=== PATIENT | male | born 1970 | race Caucasian/White ===

== ENCOUNTER 2017-02-22 15:31 | Emergency (ER) | payer OTHER ==
[~2017-02-22] VITALS: Ht 165.1 cm; Wt 90.9 kg
[~2017-02-22 15:31] MED LIST: AMLO-512 PO; B CO1CAP4 PO; DULO20CA30 PO; HYDR-2924 PO; LEVO25TA9 PO; LISI-660 PO; METO25; QUET200T PO; QUET25TA PO
[2017-02-22] MEDS ORDERED: LOSA50TA37 PO (15:38)
[2017-02-22 15:43] LABS: GLUCOSE,POINT OF CARE 155 MG/DL (70-110)
[2017-02-22 16:15] LABS: BASOPHILS # (AUTO) 0.02 K/uL (0.00-0.20); BASOPHILS % (AUTO) 0.3 % (0.0-2.0); EOSINOPHILS # (AUTO) 0.19 K/uL (0.00-0.70); EOSINOPHILS % (AUTO) 3.34 % (1.0-6.0); HEMATOCRIT 31.2 % (41-53); HEMOGLOBIN 10.5 g/dL (13.5-17.5); LYMPHOCYTES # (AUTO) 1.8 K/uL (1.0-4.8); LYMPHOCYTES % (AUTO) 31.5 % (22.0-44.0); MEAN CORPUSCULAR HGB CONC 33.7 G/dL (31.0-37.0); MEAN CORPUSCULAR VOLUME 95 fL (80-100); MONOCYTES # (AUTO) 0.8 K/uL (0.1-1.0); MONOCYTES % (AUTO) 14.5 % (2.0-9.0); NEUTROPHILS # (AUTO) 2.9 K/uL (1.8-7.7); NEUTROPHILS % (AUTO) 50.5 % (40.0-70.0); PLATELET COUNT (AUTO) 214 K/uL (150-450); RED BLOOD CELL COUNT(AUTO) 3.28 MIL/uL (4.50-5.90); RED CELL DISTRIBUTION WIDTH 19.1 % (11.5-14.5)
[2017-02-22 16:41] LABS: CALCIUM, TOTAL 8.8 mg/dL (8.8-10.5); CREATININE 10.77 mg/dL (0.60-1.30); POTASSIUM 5.1 mmol/L (3.5-5.1)
[2017-02-22 16:47] LABS: ALBUMIN 3.5 g/dL (3.4-5.0); BILIRUBIN,TOTAL 0.4 mg/dL (0.1-1.0)
[2017-02-22] MEDS ORDERED: BISMUTH SUBSALICYLATE 524 MG/30 ML SUSPENSION UDCUP PO ONE (18:15)
[2017-02-22] MEDS ORDERED: ONDANSETRON HCL 4 MG/2 ML VIAL IVP ONE (18:15)
[2017-02-22 19:42] VITALS: BP 145/69
== END 2017-02-22 19:51 | disposition home or self-care (01) ==
LOC: EMS 15:32
DX: R10.30 Lower abdominal pain, unspecified (principal); R19.7 Diarrhea, unspecified; E11.9 Type 2 diabetes mellitus without complications; I10 Essential (primary) hypertension; E78.00 Pure hypercholesterolemia, unspecified; F17.210 Nicotine dependence, cigarettes, uncomplicated; Z88.0 Allergy status to penicillin; Z88.8 Allergy status to other drugs, medicaments and biological substances
CPT/HCPCS: 36415; 80053; 82962; 83690; 85025; 96374; 99284; 99406; J2405

== ENCOUNTER 2017-09-27 06:05 | Day surgery (SDC) | payer OTHER ==
[~2017-09-27] VITALS: Ht 162.6 cm; Wt 86.8 kg
[~2017-09-27 06:05] MED LIST changes: -AMLO-512 PO; +ASPI81 PO; +ATOR10TA84 PO; -B CO1CAP4 PO; +CETI-290 PO; +CYCL10 PO; -DULO20CA30 PO; +FOLI0.8T43 PO; -HYDR-2924 PO; -LEVO25TA9 PO; +LEVO88TA4 PO; -LISI-660 PO; +LOSA50TA37 PO; -METO25; +PANT40TA25 PO; +PHOSLOC PO; -QUET200T PO; +SODIUM CHLORIDE 0.9% 1,000 ML IV ONE; +SUCR500T PO; +VITAD1000 PO
[2017-09-27] MEDS ORDERED: SODIUM CHLORIDE 0.9% 1,000 ML IV ONE (06:08)
[2017-09-27] MEDS ORDERED: CETI-290 PO (06:27)
[2017-09-27] MEDS ORDERED: METO50 PO (06:28)
[2017-09-27 07:47] LABS: BASOPHILS % (AUTO) 1.1 % (0.0-2.0); EOSINOPHILS % (AUTO) 2.3 % (1.0-6.0); HEMATOCRIT 36.1 % (41-53); HEMOGLOBIN 12.8 g/dL (13.5-17.5); LYMPHOCYTES # (AUTO) 2.2 K/uL (1.0-4.8); LYMPHOCYTES % (AUTO) 31.1 % (22.0-44.0); MEAN CORPUSCULAR HEMOGLOBIN 29.7 pg (26.0-34.0); MEAN CORPUSCULAR HGB CONC 35.5 G/dL (31.0-37.0); MEAN CORPUSCULAR VOLUME 84 fL (80-100); MONOCYTES % (AUTO) 13.8 % (2.0-9.0); NEUTROPHILS # (AUTO) 3.6 K/uL (1.8-7.7); NEUTROPHILS % (AUTO) 51.7 % (40.0-70.0); PLATELET COUNT (AUTO) 274 K/uL (150-450); RED BLOOD CELL COUNT(AUTO) 4.32 MIL/uL (4.50-5.90); RED CELL DISTRIBUTION WIDTH 18.6 % (11.5-14.5)
[2017-09-27 07:58] LABS: CALCIUM, TOTAL 8.9 mg/dL (8.8-10.5); CREATININE 10.19 mg/dL (0.60-1.30); POTASSIUM 4.1 mmol/L (3.5-5.1)
[2017-09-27 08:00] LABS: PROTHROMBIN TIME 10.7 SEC (9.4-11.6)
[2017-09-27 08:02] LABS: ALBUMIN 3.8 g/dL (3.4-5.0); BILIRUBIN,TOTAL 0.6 mg/dL (0.1-1.0); TOTAL PROTEIN, SERUM 7.6 g/dL (6.4-8.2)
[2017-09-27] MEDS ORDERED: HEPARIN SODIUM 1000 UNITS/NS 1,000 ML ONE (08:19)
[2017-09-27] MEDS ORDERED: IOHEXOL 300 MG/ML 150 ML VIAL ONE (08:19)
[2017-09-27] MEDS ORDERED: SODIUM BICARBONATE 50 MEQ/50 ML VIAL ONE (08:19)
[2017-09-27] MEDS ORDERED: LIDOCAINE HCL/PF 1% 30 ML VIAL ONE (08:19)
[2017-09-27 08:27] VITALS: BP 102/65
[2017-09-27] MEDS ORDERED: HEPARIN SODIUM 1000 UNITS/NS 1,000 ML IARTER ONE (09:42)
[2017-09-27] MEDS ORDERED: LIDOCAINE 1% 30 ML/SOD BICARB 8.4% 4 ML SQ ONE (09:45)
[2017-09-27] MEDS ORDERED: IOHEXOL 300 MG/ML 150 ML VIAL IARTER ONE (09:45)
[2017-09-27 09:58] VITALS: BP 106/70
== END 2017-09-27 14:15 | disposition home or self-care (01) ==
LOC: CATHLAB 06:05
PROVIDERS: ATTEND Internal Medicine Cardiovascular Disease
DX: I25.118 Atherosclerotic heart disease of native coronary artery with other forms of angina pectoris (principal); I12.0 Hypertensive chronic kidney disease with stage 5 chronic kidney disease or end stage renal disease; E11.22 Type 2 diabetes mellitus with diabetic chronic kidney disease; N18.6 End stage renal disease; E03.9 Hypothyroidism, unspecified; E78.5 Hyperlipidemia, unspecified; F10.21 Alcohol dependence, in remission; F12.21 Cannabis dependence, in remission; F41.8 Other specified anxiety disorders; F32.89 Other specified depressive episodes; Z99.2 Dependence on renal dialysis; Z86.74 Personal history of sudden cardiac arrest; Z79.4 Long term (current) use of insulin; Z79.82 Long term (current) use of aspirin; Z88.0 Allergy status to penicillin; Z87.891 Personal history of nicotine dependence; Z90.89 Acquired absence of other organs; Z88.8 Allergy status to other drugs, medicaments and biological substances; Z79.899 Other long term (current) drug therapy; Z98.890 Other specified postprocedural states
CPT/HCPCS: 36415; 80053; 85025; 85610; 85730; 93005; 93458; 99152; 99153; C1760; J1644; J3490 ×2; J7030; Q9967

== ENCOUNTER 2018-04-02 11:45 | Emergency (ER) | payer MEDICAID, OTHER ==
[~2018-04-02] VITALS: Ht 165.1 cm; Wt 88.6 kg
[~2018-04-02 11:45] MED LIST changes: -CYCL10 PO; -LOSA50TA37 PO; +LOSA50TA64 PO; +METO50 PO; -SODIUM CHLORIDE 0.9% 1,000 ML IV ONE
[2018-04-02 11:54] LABS: GLUCOSE,POINT OF CARE 250 MG/DL (70-110)
[2018-04-02] MEDS ORDERED: LORazepam 1 MG TABLET PO ONE (15:30)
[2018-04-02] MEDS ORDERED: HALOPERIDOL 5 MG TABLET PO ONE (15:30)
[2018-04-02] MEDS ORDERED: ACETAMINOPHEN 325 MG TABLET PO ONE (15:30)
[2018-04-02 16:05] VITALS: BP 147/97
== END 2018-04-02 16:40 | disposition home or self-care (01) ==
LOC: EMS 11:46
DX: F20.9 Schizophrenia, unspecified (principal); I10 Essential (primary) hypertension; E78.00 Pure hypercholesterolemia, unspecified; E11.9 Type 2 diabetes mellitus without complications; F17.210 Nicotine dependence, cigarettes, uncomplicated; Z88.0 Allergy status to penicillin; Z88.8 Allergy status to other drugs, medicaments and biological substances; Z79.82 Long term (current) use of aspirin

== ENCOUNTER 2018-05-31 18:45 | Inpatient (IN) | payer MEDICAID, OTHER ==
[~2018-05-31] VITALS: Ht 167.6 cm; Wt 91.3 kg
[~2018-05-31 18:45] MED LIST changes: +CETI-170 PO; -CETI-290 PO
[2018-05-31 20:38] LABS: EOSINOPHILS % (AUTO) 0.9 % (1.0-6.0); HEMATOCRIT 40.6 % (41-53); LYMPHOCYTES # (AUTO) 2.6 K/uL (1.0-4.8); LYMPHOCYTES % (AUTO) 24.1 % (22.0-44.0); MEAN CORPUSCULAR HEMOGLOBIN 29.6 pg (26.0-34.0); MEAN CORPUSCULAR HGB CONC 34.5 G/dL (31.0-37.0); MEAN CORPUSCULAR VOLUME 86 fL (80-100); MONOCYTES # (AUTO) 0.9 K/uL (0.1-1.0); MONOCYTES % (AUTO) 8.7 % (2.0-9.0); NEUTROPHILS % (AUTO) 65.3 % (40.0-70.0); PLATELET COUNT (AUTO) 264 K/uL (150-450); RED BLOOD CELL COUNT(AUTO) 4.73 MIL/uL (4.50-5.90); RED CELL DISTRIBUTION WIDTH 18.2 % (11.5-14.5)
[2018-05-31 21:21] LABS: ANION GAP 9 mmol/L (8-16); CALCIUM, TOTAL 10.6 mg/dL (8.8-10.5); CARBON DIOXIDE 33 mmol/L (22-29); CHLORIDE 94 mmol/L (98-107); CREATININE 7.48 mg/dL (0.60-1.30); GLOMERULAR FILTR. RATE CALC 8 mL/min (>60); GLUCOSE,RANDOM 160 mg/dL (70-110); POTASSIUM 5.6 mmol/L (3.5-5.1); SODIUM SERUM 136 mmol/L (136-145); UREA NITROGEN, BLOOD 31 mg/dL (7-18)
[2018-05-31 21:27] LABS: ALANINE AMINOTRANSFERASE 26 U/L (12-78); ALBUMIN 4.4 g/dL (3.4-5.0); ALKALINE PHOSPHATASE 102 U/L (46-116); ASPARTATE AMINOTRANSFERASE 17 U/L (15-37); BILIRUBIN,TOTAL 0.6 mg/dL (0.1-1.0)
[2018-06-01] MEDS ORDERED: HALOPERIDOL 5 MG TABLET PO PRN (00:30)
[2018-06-01] MEDS ORDERED: ZOLPIDEM TARTRATE 10 MG TABLET PO PRN (00:30)
[2018-06-01 02:18] LABS: CHOL/HDL RATIO 3.8 (4.2-7.3); CHOLESTEROL 182 mg/dL (131-200); FREE T4 (FREE THYROXINE) 0.95 ng/dL (0.76-1.46); HDL CHOLESTEROL 48 mg/dL (40-60); THYROID STIMULATING HORMONE 2.08 uIU/mL (0.36-3.74); TRIGLYCERIDES 553 mg/dL (15-150)
[2018-06-01] MEDS ORDERED: ACETAMINOPHEN 500 MG TABLET PO ONE (03:45)
[2018-06-01] MEDS ORDERED: SODIUM POLYSTYRENE SULFONATE 15 GM/60 ML SUSPENSION BOTTLE PO ONE (03:45)
[2018-06-01 08:55] VITALS: BP 137/92
[2018-06-01] MEDS: LORazepam 2 MG TABLET PO PRN ×2 (12:36→21:54)
[2018-06-01 18:27] VITALS: BP 126/73
[2018-06-01] MEDS ORDERED: DEXTROSE 50%-WATER 25 GM/50 ML SYRINGE IVP PRN (20:30)
[2018-06-01 21:30] VITALS: BP 130/70
[2018-06-01] MEDS: QUEtiapine FUMARATE 200 MG TABLET PO SCH (21:55)
[2018-06-01 21:59] LABS: GLUCOSE,POINT OF CARE 236 MG/DL (70-110)
[2018-06-01] MEDS: INSULIN LISPRO 100 UNITS/ML SQ PRN (22:07)
[2018-06-02 05:48] LABS: BASOPHILS % (AUTO) 0.7 % (0.0-2.0); EOSINOPHILS % (AUTO) 4.2 % (1.0-6.0); HEMATOCRIT 34.7 % (41-53); HEMOGLOBIN 12.5 g/dL (13.5-17.5); LYMPHOCYTES % (AUTO) 33.4 % (22.0-44.0); MEAN CORPUSCULAR HEMOGLOBIN 30.7 pg (26.0-34.0); MEAN CORPUSCULAR HGB CONC 36.1 G/dL (31.0-37.0); MEAN CORPUSCULAR VOLUME 85 fL (80-100); MONOCYTES # (AUTO) 0.7 K/uL (0.1-1.0); MONOCYTES % (AUTO) 10.7 % (2.0-9.0); NEUTROPHILS # (AUTO) 3.1 K/uL (1.8-7.7); PLATELET COUNT (AUTO) 216 K/uL (150-450); RED BLOOD CELL COUNT(AUTO) 4.07 MIL/uL (4.50-5.90); RED CELL DISTRIBUTION WIDTH 17.6 % (11.5-14.5)
[2018-06-02 06:01] LABS: ALBUMIN 3.4 g/dL (3.4-5.0); BILIRUBIN,TOTAL 0.4 mg/dL (0.1-1.0); CALCIUM, TOTAL 9.2 mg/dL (8.8-10.5); CREATININE 11.79 mg/dL (0.60-1.30); MAGNESIUM 2.7 mg/dL (1.80-2.40); PHOSPHORUS 6.1 mg/dL (2.5-4.9); POTASSIUM 5.7 mmol/L (3.5-5.1); TOTAL PROTEIN, SERUM 6.8 g/dL (6.4-8.2)
[2018-06-02 06:44] LABS: GLUCOSE,POINT OF CARE 119 MG/DL (70-110)
[2018-06-02] MEDS: OMEGA-3/DHA/EPA/FISH OIL 1,000 MG CAPSULE PO SCH (09:34)
[2018-06-02] MEDS: CHOLECALCIFEROL (VIT D3) 1,000 UNITS TABLET PO SCH (09:35)
[2018-06-02] MEDS: LOSARTAN POTASSIUM 50 MG TABLET PO SCH (09:35)
[2018-06-02] MEDS: ASPIRIN 81 MG CHEWABLE TABLET PO SCH (09:35)
[2018-06-02] MEDS: QUEtiapine FUMARATE 200 MG TABLET PO SCH ×2 (09:35→20:12)
[2018-06-02] MEDS: QUEtiapine FUMARATE 25 MG TABLET PO SCH (09:35)
[2018-06-02] MEDS: CETIRIZINE HCL 10 MG TABLET PO SCH (09:35)
[2018-06-02] MEDS: VITAMIN B COMP/VIT C/FOLIC ACID CAPSULE PO SCH (09:35)
[2018-06-02] MEDS: LEVOTHYROXINE SODIUM 88 MCG TABLET PO SCH (09:35)
[2018-06-02] MEDS: PANTOPRAZOLE SODIUM 40 MG DR TABLET PO SCH (09:35)
[2018-06-02] MEDS: ATORVASTATIN CALCIUM 10 MG TABLET PO SCH (09:35)
[2018-06-02 10:48] VITALS: BP 135/78
[2018-06-02 11:25] LABS: GLUCOMETER DEV NAME(LOC) AHU.; GLUCOSE,POINT OF CARE 255 MG/DL (70-110)
[2018-06-02] MEDS: INSULIN LISPRO 100 UNITS/ML SQ PRN ×3 (11:45→21:02)
[2018-06-02 17:34] LABS: GLUCOSE,POINT OF CARE 212 MG/DL (70-110)
[2018-06-02 21:04] LABS: GLUCOSE,POINT OF CARE 147 MG/DL (70-110)
[2018-06-03 05:47] LABS: CHOL/HDL RATIO 4.1 (4.2-7.3)
[2018-06-03 06:34] LABS: GLUCOMETER DEV NAME(LOC) AHU.; GLUCOSE,POINT OF CARE 124 MG/DL (70-110)
[2018-06-03] MEDS: LEVOTHYROXINE SODIUM 88 MCG TABLET PO SCH (06:42)
[2018-06-03] MEDS: LOSARTAN POTASSIUM 50 MG TABLET PO SCH (08:15)
[2018-06-03] MEDS: ASPIRIN 81 MG CHEWABLE TABLET PO SCH (08:15)
[2018-06-03] MEDS: QUEtiapine FUMARATE 200 MG TABLET PO SCH ×2 (08:15→20:50)
[2018-06-03] MEDS: CETIRIZINE HCL 10 MG TABLET PO SCH (08:15)
[2018-06-03] MEDS: PANTOPRAZOLE SODIUM 40 MG DR TABLET PO SCH (08:15)
[2018-06-03] MEDS: VITAMIN B COMP/VIT C/FOLIC ACID CAPSULE PO SCH (08:15)
[2018-06-03] MEDS: OMEGA-3/DHA/EPA/FISH OIL 1,000 MG CAPSULE PO SCH (08:15)
[2018-06-03] MEDS: CHOLECALCIFEROL (VIT D3) 1,000 UNITS TABLET PO SCH (08:15)
[2018-06-03] MEDS: ATORVASTATIN CALCIUM 10 MG TABLET PO SCH (08:15)
[2018-06-03] MEDS: QUEtiapine FUMARATE 25 MG TABLET PO SCH (08:16)
[2018-06-03 10:25] LABS: BASOPHILS % (AUTO) 0.9 % (0.0-2.0); EOSINOPHILS % (AUTO) 3.5 % (1.0-6.0); HEMATOCRIT 35.1 % (41-53); HEMOGLOBIN 12.4 g/dL (13.5-17.5); LYMPHOCYTES % (AUTO) 29.7 % (22.0-44.0); MEAN CORPUSCULAR HEMOGLOBIN 30.2 pg (26.0-34.0); MEAN CORPUSCULAR HGB CONC 35.2 G/dL (31.0-37.0); MEAN CORPUSCULAR VOLUME 86 fL (80-100); MONOCYTES # (AUTO) 0.8 K/uL (0.1-1.0); MONOCYTES % (AUTO) 11.4 % (2.0-9.0); NEUTROPHILS # (AUTO) 3.7 K/uL (1.8-7.7); NEUTROPHILS % (AUTO) 54.5 % (40.0-70.0); PLATELET COUNT (AUTO) 233 K/uL (150-450); RED BLOOD CELL COUNT(AUTO) 4.09 MIL/uL (4.50-5.90); RED CELL DISTRIBUTION WIDTH 17.6 % (11.5-14.5)
[2018-06-03 10:42] LABS: ALBUMIN 3.5 g/dL (3.4-5.0); BILIRUBIN,TOTAL 0.5 mg/dL (0.1-1.0); CALCIUM, TOTAL 8.9 mg/dL (8.8-10.5); CREATININE 14.66 mg/dL (0.60-1.30); MAGNESIUM 2.8 mg/dL (1.80-2.40); PHOSPHORUS 7.5 mg/dL (2.5-4.9); TOTAL PROTEIN, SERUM 6.7 g/dL (6.4-8.2)
[2018-06-03 10:45] LABS: POTASSIUM 6.5 mmol/L (3.5-5.1)
[2018-06-03 11:00] VITALS: BP 128/79
[2018-06-03] MEDS ORDERED: INSULIN REGULAR, HUMAN 100 UNITS/ML ONE (11:13)
[2018-06-03] MEDS ORDERED: DEXTROSE 50%-WATER 25 GM/50 ML SYRINGE IVP ONE (11:15)
[2018-06-03] MEDS ORDERED: CALCIUM GLUCONATE 100 MG/ML 10 ML IVP ONE (11:15)
[2018-06-03] MEDS ORDERED: INSULIN REGULAR, HUMAN 100 UNITS/ML IVP ONE (11:15)
[2018-06-03 11:29] LABS: GLUCOMETER DEV NAME(LOC) AHU.; GLUCOSE,POINT OF CARE 130 MG/DL (70-110)
[2018-06-03 17:14] LABS: GLUCOMETER DEV NAME(LOC) AHU.; GLUCOSE,POINT OF CARE 90 MG/DL (70-110)
[2018-06-03] MEDS: CALCIUM ACETATE 667 MG CAPSULE PO SCH (17:21)
[2018-06-03 19:37] VITALS: BP 143/96
[2018-06-03] MEDS: INSULIN LISPRO 100 UNITS/ML SQ PRN (20:52)
[2018-06-03 20:59] LABS: GLUCOMETER DEV NAME(LOC) 3E.I; GLUCOSE,POINT OF CARE 191 MG/DL (70-110)
[2018-06-04 06:20] LABS: GLUCOMETER DEV NAME(LOC) 3E.I; GLUCOSE,POINT OF CARE 129 MG/DL (70-110)
[2018-06-04] MEDS ORDERED: PNEUMOCOCCAL VACCINE POLYVALENT 0.5 ML VIAL [PPSV23] IM ONE (06:30)
[2018-06-04] MEDS: INSULIN LISPRO 100 UNITS/ML SQ PRN ×2 (07:05→12:31)
[2018-06-04] MEDS: LEVOTHYROXINE SODIUM 88 MCG TABLET PO SCH (07:05)
[2018-06-04] MEDS: CALCIUM ACETATE 667 MG CAPSULE PO SCH ×3 (07:05→17:57)
[2018-06-04 08:05] VITALS: BP 145/93
[2018-06-04] MEDS: LOSARTAN POTASSIUM 50 MG TABLET PO SCH (11:14)
[2018-06-04] MEDS: VITAMIN B COMP/VIT C/FOLIC ACID CAPSULE PO SCH (11:14)
[2018-06-04] MEDS: CETIRIZINE HCL 10 MG TABLET PO SCH (11:14)
[2018-06-04] MEDS: CHOLECALCIFEROL (VIT D3) 1,000 UNITS TABLET PO SCH (11:14)
[2018-06-04] MEDS: PANTOPRAZOLE SODIUM 40 MG DR TABLET PO SCH (11:14)
[2018-06-04] MEDS: QUEtiapine FUMARATE 25 MG TABLET PO SCH (11:14)
[2018-06-04] MEDS: ATORVASTATIN CALCIUM 10 MG TABLET PO SCH (11:15)
[2018-06-04] MEDS: OMEGA-3/DHA/EPA/FISH OIL 1,000 MG CAPSULE PO SCH (11:15)
[2018-06-04] MEDS: QUEtiapine FUMARATE 200 MG TABLET PO SCH ×2 (11:15→20:28)
[2018-06-04] MEDS: ASPIRIN 81 MG CHEWABLE TABLET PO SCH (11:16)
[2018-06-04 11:50] LABS: GLUCOMETER DEV NAME(LOC) 3E.I; GLUCOSE,POINT OF CARE 154 MG/DL (70-110)
[2018-06-04 16:17] VITALS: BP 121/91
[2018-06-04 17:04] LABS: GLUCOMETER DEV NAME(LOC) 3E.I; GLUCOSE,POINT OF CARE 101 MG/DL (70-110)
[2018-06-05] MEDS: LEVOTHYROXINE SODIUM 88 MCG TABLET PO SCH (07:03)
[2018-06-05] MEDS: CALCIUM ACETATE 667 MG CAPSULE PO SCH ×3 (07:03→16:38)
[2018-06-05 08:05] VITALS: BP 141/89
[2018-06-05] MEDS: PANTOPRAZOLE SODIUM 40 MG DR TABLET PO SCH (08:41)
[2018-06-05] MEDS: LOSARTAN POTASSIUM 50 MG TABLET PO SCH (08:41)
[2018-06-05] MEDS: VITAMIN B COMP/VIT C/FOLIC ACID CAPSULE PO SCH (08:41)
[2018-06-05] MEDS: OMEGA-3/DHA/EPA/FISH OIL 1,000 MG CAPSULE PO SCH (08:41)
[2018-06-05] MEDS: QUEtiapine FUMARATE 25 MG TABLET PO SCH (08:41)
[2018-06-05] MEDS: ATORVASTATIN CALCIUM 10 MG TABLET PO SCH (08:41)
[2018-06-05] MEDS: CHOLECALCIFEROL (VIT D3) 1,000 UNITS TABLET PO SCH (08:41)
[2018-06-05] MEDS: QUEtiapine FUMARATE 200 MG TABLET PO SCH ×2 (08:41→21:28)
[2018-06-05] MEDS: CETIRIZINE HCL 10 MG TABLET PO SCH (08:41)
[2018-06-05] MEDS: ASPIRIN 81 MG CHEWABLE TABLET PO SCH (08:42)
[2018-06-05 09:38] LABS: GLUCOMETER DEV NAME(LOC) 3E.I; GLUCOSE,POINT OF CARE 148 MG/DL (70-110)
[2018-06-05 09:50] LABS: GLUCOMETER DEV NAME(LOC) 3E.I; GLUCOSE,POINT OF CARE 113 MG/DL (70-110)
[2018-06-05 11:05] LABS: GLUCOMETER DEV NAME(LOC) 3E.I; GLUCOSE,POINT OF CARE 150 MG/DL (70-110)
[2018-06-05] MEDS: INSULIN LISPRO 100 UNITS/ML SQ PRN (12:38)
[2018-06-05 16:10] LABS: GLUCOMETER DEV NAME(LOC) 3E.I; GLUCOSE,POINT OF CARE 139 MG/DL (70-110)
[2018-06-05 22:31] VITALS: BP 138/76
[2018-06-05 22:46] LABS: GLUCOMETER DEV NAME(LOC) 3E.I; GLUCOSE,POINT OF CARE 109 MG/DL (70-110)
[2018-06-06 05:56] LABS: GLUCOMETER DEV NAME(LOC) 3E.I; GLUCOSE,POINT OF CARE 121 MG/DL (70-110)
[2018-06-06] MEDS: CALCIUM ACETATE 667 MG CAPSULE PO SCH ×3 (06:55→18:08)
[2018-06-06] MEDS: LEVOTHYROXINE SODIUM 88 MCG TABLET PO SCH (06:55)
[2018-06-06] MEDS: INSULIN LISPRO 100 UNITS/ML SQ PRN ×2 (07:16→17:40)
[2018-06-06] MEDS: CETIRIZINE HCL 10 MG TABLET PO SCH (09:23)
[2018-06-06] MEDS: QUEtiapine FUMARATE 200 MG TABLET PO SCH ×2 (09:23→21:08)
[2018-06-06] MEDS: QUEtiapine FUMARATE 25 MG TABLET PO SCH (09:23)
[2018-06-06] MEDS: PANTOPRAZOLE SODIUM 40 MG DR TABLET PO SCH (09:23)
[2018-06-06] MEDS: LOSARTAN POTASSIUM 50 MG TABLET PO SCH (09:23)
[2018-06-06] MEDS: ATORVASTATIN CALCIUM 10 MG TABLET PO SCH (09:23)
[2018-06-06] MEDS: CHOLECALCIFEROL (VIT D3) 1,000 UNITS TABLET PO SCH (09:23)
[2018-06-06] MEDS: OMEGA-3/DHA/EPA/FISH OIL 1,000 MG CAPSULE PO SCH (09:23)
[2018-06-06] MEDS: VITAMIN B COMP/VIT C/FOLIC ACID CAPSULE PO SCH (09:23)
[2018-06-06] MEDS: ASPIRIN 81 MG CHEWABLE TABLET PO SCH (09:35)
[2018-06-06 11:38] LABS: GLUCOMETER DEV NAME(LOC) 3E.I; GLUCOSE,POINT OF CARE 135 MG/DL (70-110)
[2018-06-06 13:53] VITALS: BP 126/81
[2018-06-06 16:57] VITALS: BP 147/92
[2018-06-06 16:59] LABS: GLUCOMETER DEV NAME(LOC) 3E.I; GLUCOSE,POINT OF CARE 180 MG/DL (70-110)
[2018-06-06 22:13] LABS: GLUCOMETER DEV NAME(LOC) 3E.I; GLUCOSE,POINT OF CARE 137 MG/DL (70-110)
[2018-06-07 06:19] LABS: GLUCOMETER DEV NAME(LOC) 3E.I; GLUCOSE,POINT OF CARE 118 MG/DL (70-110)
[2018-06-07 06:42] VITALS: BP 138/82
[2018-06-07] MEDS: LEVOTHYROXINE SODIUM 88 MCG TABLET PO SCH (06:58)
[2018-06-07] MEDS: CALCIUM ACETATE 667 MG CAPSULE PO SCH ×3 (06:58→18:25)
[2018-06-07] MEDS: ATORVASTATIN CALCIUM 10 MG TABLET PO SCH (09:29)
[2018-06-07] MEDS: ASPIRIN 81 MG CHEWABLE TABLET PO SCH (09:29)
[2018-06-07] MEDS: QUEtiapine FUMARATE 200 MG TABLET PO SCH ×2 (09:29→20:21)
[2018-06-07] MEDS: QUEtiapine FUMARATE 25 MG TABLET PO SCH (09:30)
[2018-06-07] MEDS: VITAMIN B COMP/VIT C/FOLIC ACID CAPSULE PO SCH (09:30)
[2018-06-07] MEDS: PANTOPRAZOLE SODIUM 40 MG DR TABLET PO SCH (09:30)
[2018-06-07] MEDS: LOSARTAN POTASSIUM 50 MG TABLET PO SCH (09:30)
[2018-06-07] MEDS: OMEGA-3/DHA/EPA/FISH OIL 1,000 MG CAPSULE PO SCH (09:30)
[2018-06-07] MEDS: CHOLECALCIFEROL (VIT D3) 1,000 UNITS TABLET PO SCH (09:30)
[2018-06-07] MEDS: CETIRIZINE HCL 10 MG TABLET PO SCH (09:31)
[2018-06-07 11:28] LABS: GLUCOMETER DEV NAME(LOC) 3E.I; GLUCOSE,POINT OF CARE 146 MG/DL (70-110)
[2018-06-07] MEDS: INSULIN LISPRO 100 UNITS/ML SQ PRN ×2 (11:41→20:53)
[2018-06-07 14:33] VITALS: BP 132/79
[2018-06-07 16:00] VITALS: BP 138/82
[2018-06-07 18:03] LABS: GLUCOMETER DEV NAME(LOC) 3E.I; GLUCOSE,POINT OF CARE 126 MG/DL (70-110)
[2018-06-07 20:59] LABS: GLUCOMETER DEV NAME(LOC) 3E.I; GLUCOSE,POINT OF CARE 153 MG/DL (70-110)
[2018-06-08 06:04] LABS: GLUCOMETER DEV NAME(LOC) 3E.I; GLUCOSE,POINT OF CARE 108 MG/DL (70-110)
[2018-06-08 06:46] LABS: BASOPHILS % (AUTO) 0.6 % (0.0-2.0); EOSINOPHILS % (AUTO) 3.4 % (1.0-6.0); HEMATOCRIT 34.3 % (41-53); HEMOGLOBIN 12.5 g/dL (13.5-17.5); LYMPHOCYTES # (AUTO) 1.9 K/uL (1.0-4.8); LYMPHOCYTES % (AUTO) 36.1 % (22.0-44.0); MEAN CORPUSCULAR HEMOGLOBIN 30.9 pg (26.0-34.0); MEAN CORPUSCULAR HGB CONC 36.5 G/dL (31.0-37.0); MEAN CORPUSCULAR VOLUME 85 fL (80-100); MONOCYTES # (AUTO) 0.7 K/uL (0.1-1.0); MONOCYTES % (AUTO) 13.3 % (2.0-9.0); NEUTROPHILS # (AUTO) 2.5 K/uL (1.8-7.7); NEUTROPHILS % (AUTO) 46.6 % (40.0-70.0); PLATELET COUNT (AUTO) 241 K/uL (150-450); RED BLOOD CELL COUNT(AUTO) 4.05 MIL/uL (4.50-5.90); RED CELL DISTRIBUTION WIDTH 18.5 % (11.5-14.5)
[2018-06-08] MEDS: CALCIUM ACETATE 667 MG CAPSULE PO SCH ×3 (06:50→17:21)
[2018-06-08] MEDS: LEVOTHYROXINE SODIUM 88 MCG TABLET PO SCH (06:50)
[2018-06-08 07:02] LABS: ALBUMIN 3.4 g/dL (3.4-5.0); BILIRUBIN,TOTAL 0.5 mg/dL (0.1-1.0); CALCIUM, TOTAL 8.5 mg/dL (8.8-10.5); CREATININE 7.85 mg/dL (0.60-1.30); MAGNESIUM 1.7 mg/dL (1.80-2.40); PHOSPHORUS 5.8 mg/dL (2.5-4.9); POTASSIUM 5.2 mmol/L (3.5-5.1); TOTAL PROTEIN, SERUM 6.6 g/dL (6.4-8.2)
[2018-06-08] MEDS: ATORVASTATIN CALCIUM 10 MG TABLET PO SCH (09:16)
[2018-06-08] MEDS: ASPIRIN 81 MG CHEWABLE TABLET PO SCH (09:16)
[2018-06-08] MEDS: LOSARTAN POTASSIUM 50 MG TABLET PO SCH (09:16)
[2018-06-08] MEDS: QUEtiapine FUMARATE 200 MG TABLET PO SCH ×2 (09:17→20:44)
[2018-06-08] MEDS: QUEtiapine FUMARATE 25 MG TABLET PO SCH (09:17)
[2018-06-08] MEDS: VITAMIN B COMP/VIT C/FOLIC ACID CAPSULE PO SCH (09:17)
[2018-06-08] MEDS: CHOLECALCIFEROL (VIT D3) 1,000 UNITS TABLET PO SCH (09:17)
[2018-06-08] MEDS: PANTOPRAZOLE SODIUM 40 MG DR TABLET PO SCH (09:17)
[2018-06-08] MEDS: OMEGA-3/DHA/EPA/FISH OIL 1,000 MG CAPSULE PO SCH (09:17)
[2018-06-08] MEDS: CETIRIZINE HCL 10 MG TABLET PO SCH (09:22)
[2018-06-08 12:22] VITALS: BP 154/90
[2018-06-08 16:24] LABS: GLUCOMETER DEV NAME(LOC) 3EX.; GLUCOSE,POINT OF CARE 158 MG/DL (70-110)
[2018-06-08] MEDS: INSULIN LISPRO 100 UNITS/ML SQ PRN (17:41)
[2018-06-08 18:08] VITALS: BP 147/88
[2018-06-08 21:10] LABS: GLUCOMETER DEV NAME(LOC) 3EX.; GLUCOSE,POINT OF CARE 115 MG/DL (70-110)
[2018-06-09 06:04] LABS: GLUCOMETER DEV NAME(LOC) 3EX.; GLUCOSE,POINT OF CARE 102 MG/DL (70-110)
[2018-06-09] MEDS: CALCIUM ACETATE 667 MG CAPSULE PO SCH ×3 (06:59→17:39)
[2018-06-09] MEDS: LEVOTHYROXINE SODIUM 88 MCG TABLET PO SCH (06:59)
[2018-06-09 07:05] LABS: CALCIUM, TOTAL 8.2 mg/dL (8.8-10.5); CREATININE 10.24 mg/dL (0.60-1.30); POTASSIUM 5.6 mmol/L (3.5-5.1)
[2018-06-09] MEDS ORDERED: SODIUM POLYSTYRENE SULFONATE 15 GM/60 ML SUSPENSION BOTTLE PO ONE (09:00)
[2018-06-09] MEDS: ASPIRIN 81 MG CHEWABLE TABLET PO SCH (09:01)
[2018-06-09] MEDS: ATORVASTATIN CALCIUM 10 MG TABLET PO SCH (09:02)
[2018-06-09] MEDS: QUEtiapine FUMARATE 25 MG TABLET PO SCH (09:02)
[2018-06-09] MEDS: VITAMIN B COMP/VIT C/FOLIC ACID CAPSULE PO SCH (09:02)
[2018-06-09] MEDS: OMEGA-3/DHA/EPA/FISH OIL 1,000 MG CAPSULE PO SCH (09:02)
[2018-06-09] MEDS: LOSARTAN POTASSIUM 50 MG TABLET PO SCH (09:02)
[2018-06-09] MEDS: QUEtiapine FUMARATE 200 MG TABLET PO SCH ×2 (09:02→20:18)
[2018-06-09] MEDS: PANTOPRAZOLE SODIUM 40 MG DR TABLET PO SCH (09:02)
[2018-06-09] MEDS: CETIRIZINE HCL 10 MG TABLET PO SCH (09:03)
[2018-06-09 10:54] VITALS: BP 150/84
[2018-06-09 11:29] LABS: GLUCOMETER DEV NAME(LOC) 3EX.; GLUCOSE,POINT OF CARE 130 MG/DL (70-110)
[2018-06-09 16:00] VITALS: BP 154/88
[2018-06-09 16:38] LABS: GLUCOMETER DEV NAME(LOC) 3EX.; GLUCOSE,POINT OF CARE 123 MG/DL (70-110)
[2018-06-09 20:28] LABS: GLUCOMETER DEV NAME(LOC) 3EX.; GLUCOSE,POINT OF CARE 117 MG/DL (70-110)
[2018-06-10 06:04] LABS: GLUCOMETER DEV NAME(LOC) 3EX.; GLUCOSE,POINT OF CARE 103 MG/DL (70-110)
[2018-06-10] MEDS: LEVOTHYROXINE SODIUM 88 MCG TABLET PO SCH (06:53)
[2018-06-10] MEDS: CALCIUM ACETATE 667 MG CAPSULE PO SCH ×3 (06:53→17:34)
[2018-06-10 08:15] VITALS: BP 146/75
[2018-06-10] MEDS: PANTOPRAZOLE SODIUM 40 MG DR TABLET PO SCH (08:29)
[2018-06-10] MEDS: QUEtiapine FUMARATE 25 MG TABLET PO SCH (08:29)
[2018-06-10] MEDS: LOSARTAN POTASSIUM 50 MG TABLET PO SCH (08:29)
[2018-06-10] MEDS: QUEtiapine FUMARATE 200 MG TABLET PO SCH ×2 (08:29→20:18)
[2018-06-10] MEDS: ATORVASTATIN CALCIUM 10 MG TABLET PO SCH (08:29)
[2018-06-10] MEDS: ASPIRIN 81 MG CHEWABLE TABLET PO SCH (08:29)
[2018-06-10] MEDS: OMEGA-3/DHA/EPA/FISH OIL 1,000 MG CAPSULE PO SCH (08:30)
[2018-06-10] MEDS: VITAMIN B COMP/VIT C/FOLIC ACID CAPSULE PO SCH (08:30)
[2018-06-10] MEDS: CETIRIZINE HCL 10 MG TABLET PO SCH (08:31)
[2018-06-10 13:23] LABS: GLUCOMETER DEV NAME(LOC) 3EX.; GLUCOSE,POINT OF CARE 74 MG/DL (70-110)
[2018-06-10 17:13] LABS: GLUCOMETER DEV NAME(LOC) 3EX.; GLUCOSE,POINT OF CARE 156 MG/DL (70-110)
[2018-06-10] MEDS: INSULIN LISPRO 100 UNITS/ML SQ PRN (17:37)
[2018-06-10 19:52] VITALS: BP 132/77
[2018-06-10 20:33] LABS: GLUCOMETER DEV NAME(LOC) 3EX.; GLUCOSE,POINT OF CARE 105 MG/DL (70-110)
[2018-06-11 06:19] LABS: GLUCOMETER DEV NAME(LOC) 3EX.; GLUCOSE,POINT OF CARE 101 MG/DL (70-110)
[2018-06-11] MEDS: LEVOTHYROXINE SODIUM 88 MCG TABLET PO SCH (06:51)
[2018-06-11] MEDS: CALCIUM ACETATE 667 MG CAPSULE PO SCH ×3 (06:51→17:50)
[2018-06-11] MEDS: QUEtiapine FUMARATE 25 MG TABLET PO SCH (09:05)
[2018-06-11] MEDS: QUEtiapine FUMARATE 200 MG TABLET PO SCH ×2 (09:05→20:22)
[2018-06-11] MEDS: ASPIRIN 81 MG CHEWABLE TABLET PO SCH (09:05)
[2018-06-11] MEDS: ATORVASTATIN CALCIUM 10 MG TABLET PO SCH (09:05)
[2018-06-11] MEDS: PANTOPRAZOLE SODIUM 40 MG DR TABLET PO SCH (09:05)
[2018-06-11] MEDS: VITAMIN B COMP/VIT C/FOLIC ACID CAPSULE PO SCH (09:06)
[2018-06-11] MEDS: LOSARTAN POTASSIUM 50 MG TABLET PO SCH (09:06)
[2018-06-11] MEDS: OMEGA-3/DHA/EPA/FISH OIL 1,000 MG CAPSULE PO SCH (09:06)
[2018-06-11] MEDS: CETIRIZINE HCL 10 MG TABLET PO SCH (09:06)
[2018-06-11 11:24] LABS: GLUCOMETER DEV NAME(LOC) 3EX.; GLUCOSE,POINT OF CARE 99 MG/DL (70-110)
[2018-06-11 13:00] VITALS: BP 156/90
[2018-06-11 16:23] LABS: GLUCOMETER DEV NAME(LOC) 3EX.; GLUCOSE,POINT OF CARE 132 MG/DL (70-110)
[2018-06-11 19:20] VITALS: BP 157/89
[2018-06-11] MEDS: INSULIN LISPRO 100 UNITS/ML SQ PRN (20:22)
[2018-06-11 20:39] LABS: GLUCOMETER DEV NAME(LOC) 3EX.; GLUCOSE,POINT OF CARE 149 MG/DL (70-110)
[2018-06-12 05:39] LABS: GLUCOMETER DEV NAME(LOC) 3EX.; GLUCOSE,POINT OF CARE 85 MG/DL (70-110)
[2018-06-12 06:21] LABS: CALCIUM, TOTAL 8.1 mg/dL (8.8-10.5); CREATININE 10.91 mg/dL (0.60-1.30); MAGNESIUM 1.9 mg/dL (1.80-2.40); PHOSPHORUS 7.7 mg/dL (2.5-4.9); POTASSIUM 5.8 mmol/L (3.5-5.1)
[2018-06-12] MEDS: LEVOTHYROXINE SODIUM 88 MCG TABLET PO SCH (06:55)
[2018-06-12] MEDS: CALCIUM ACETATE 667 MG CAPSULE PO SCH ×3 (06:55→17:32)
[2018-06-12] MEDS: INSULIN LISPRO 100 UNITS/ML SQ PRN ×2 (07:11→17:34)
[2018-06-12] MEDS: QUEtiapine FUMARATE 200 MG TABLET PO SCH (08:21)
[2018-06-12] MEDS: ASPIRIN 81 MG CHEWABLE TABLET PO SCH (08:21)
[2018-06-12] MEDS: LOSARTAN POTASSIUM 50 MG TABLET PO SCH (08:21)
[2018-06-12] MEDS: OMEGA-3/DHA/EPA/FISH OIL 1,000 MG CAPSULE PO SCH (08:21)
[2018-06-12] MEDS: CETIRIZINE HCL 10 MG TABLET PO SCH (08:21)
[2018-06-12] MEDS: QUEtiapine FUMARATE 25 MG TABLET PO SCH (08:21)
[2018-06-12] MEDS: PANTOPRAZOLE SODIUM 40 MG DR TABLET PO SCH (08:21)
[2018-06-12] MEDS: ATORVASTATIN CALCIUM 10 MG TABLET PO SCH (08:21)
[2018-06-12] MEDS: VITAMIN B COMP/VIT C/FOLIC ACID CAPSULE PO SCH (08:21)
[2018-06-12 13:09] VITALS: BP 164/93
[2018-06-12 14:23] LABS: GLUCOMETER DEV NAME(LOC) 3EX.; GLUCOSE,POINT OF CARE 88 MG/DL (70-110)
[2018-06-12] MEDS ORDERED: QUET200T PO (14:35)
[2018-06-12] MEDS ORDERED: PHOSLOC PO (14:37)
[2018-06-12] MEDS ORDERED: OMEG10005 PO (14:38)
[2018-06-12] MEDS: LORazepam 2 MG TABLET PO PRN (16:06)
[2018-06-12 16:13] LABS: GLUCOMETER DEV NAME(LOC) 3EX.; GLUCOSE,POINT OF CARE 144 MG/DL (70-110)
== END 2018-06-12 18:15 | disposition home or self-care (01) | DRG 750 ==
LOC: EMS 18:46 → AHU 06-01 02:53 → 3EI 06-03 18:02
PROVIDERS: ADMIT Psychiatry & Neurology Psychiatry; ATTEND Psychiatry & Neurology Psychiatry
PROC: 5A1D70Z Performance of Urinary Filtration, Intermittent, Less than 6 Hours Per Day (ICD-10-PCS; principal; 2018-06-05)
PROC: 5A1D70Z Performance of Urinary Filtration, Intermittent, Less than 6 Hours Per Day (ICD-10-PCS; 2018-06-07)
PROC: 5A1D70Z Performance of Urinary Filtration, Intermittent, Less than 6 Hours Per Day (ICD-10-PCS; 2018-06-10)
PROC: 5A1D70Z Performance of Urinary Filtration, Intermittent, Less than 6 Hours Per Day (ICD-10-PCS; 2018-06-12)
DX: F25.0 Schizoaffective disorder, bipolar type (principal); E11.22 Type 2 diabetes mellitus with diabetic chronic kidney disease; I12.0 Hypertensive chronic kidney disease with stage 5 chronic kidney disease or end stage renal disease; E03.9 Hypothyroidism, unspecified; E78.00 Pure hypercholesterolemia, unspecified; E78.5 Hyperlipidemia, unspecified; E83.39 Other disorders of phosphorus metabolism; E87.5 Hyperkalemia; F25.1 Schizoaffective disorder, depressive type; N18.6 End stage renal disease; R45.851 Suicidal ideations; Z79.82 Long term (current) use of aspirin; Z87.891 Personal history of nicotine dependence; Z99.2 Dependence on renal dialysis
CPT/HCPCS: 83036; 83735; 84100; 84132; 84439; 84443; 87081; 87340; 93005; G0378; G0480; J0610; J1815

== ENCOUNTER 2019-11-10 21:52 | Emergency (ER) | payer MEDICAID, OTHER ==
[~2019-11-10] VITALS: Ht 165.1 cm; Wt 88.6 kg
[~2019-11-10 21:52] MED LIST changes: +ASPI-728 PO; -ASPI81 PO; -CETI-170 PO; +CETI-450 PO; +LOSA50TA37 PO; -LOSA50TA64 PO; -METO50 PO; +OMEG10005 PO; +PANT-31 PO; -PANT40TA25 PO; +QUET200T PO; -SUCR500T PO; -VITAD1000 PO
[2019-11-10 22:25] LABS: GLUCOSE,POINT OF CARE 151 MG/DL (70-110)
[2019-11-10 23:58] LABS: BASOPHILS % (AUTO) 1.3 % (0.0-2.0); HEMATOCRIT 26.1 % (41-53); HEMOGLOBIN 8.8 g/dL (13.5-17.5); LYMPHOCYTES # (AUTO) 1.8 K/uL (1.0-4.8); LYMPHOCYTES % (AUTO) 20.6 % (22.0-44.0); MEAN CORPUSCULAR HEMOGLOBIN 29.9 pg (26.0-34.0); MEAN CORPUSCULAR HGB CONC 33.9 G/dL (31.0-37.0); MEAN CORPUSCULAR VOLUME 88 fL (80-100); MONOCYTES # (AUTO) 1.2 K/uL (0.1-1.0); MONOCYTES % (AUTO) 13.8 % (2.0-9.0); NEUTROPHILS # (AUTO) 5.3 K/uL (1.8-7.7); NEUTROPHILS % (AUTO) 60.3 % (40.0-70.0); PLATELET COUNT (AUTO) 350 K/uL (150-450); RED BLOOD CELL COUNT(AUTO) 2.95 MIL/uL (4.50-5.90); RED CELL DISTRIBUTION WIDTH 17.2 % (11.5-14.5)
[2019-11-11 00:14] LABS: CALCIUM, TOTAL 8.7 mg/dL (8.8-10.5); CREATININE 7.33 mg/dL (0.60-1.30); POTASSIUM 3.9 mmol/L (3.5-5.1)
[2019-11-11 00:15] LABS: INR 1.1 (0.9-1.1); PROTHROMBIN TIME 11.3 SEC (9.4-11.6)
[2019-11-11 00:37] LABS: BILIRUBIN,TOTAL 0.3 mg/dL (0.1-1.0); TOTAL PROTEIN, SERUM 6.8 g/dL (6.4-8.2)
[2019-11-11] MEDS ORDERED: HydrALAZINE HCL 20 MG/ML VIAL IVP ONE (01:15)
[2019-11-11 02:24] VITALS: BP 158/80
== END 2019-11-11 02:40 | disposition home or self-care (01) ==
LOC: EMS 21:52
DX: D64.9 Anemia, unspecified (principal); R06.02 Shortness of breath; R60.0 Localized edema; R07.9 Chest pain, unspecified; R51 Headache; E11.22 Type 2 diabetes mellitus with diabetic chronic kidney disease; I12.0 Hypertensive chronic kidney disease with stage 5 chronic kidney disease or end stage renal disease; N18.6 End stage renal disease; E78.00 Pure hypercholesterolemia, unspecified; F20.9 Schizophrenia, unspecified; F17.210 Nicotine dependence, cigarettes, uncomplicated; Z79.82 Long term (current) use of aspirin; Z88.0 Allergy status to penicillin; Z88.8 Allergy status to other drugs, medicaments and biological substances; Z99.2 Dependence on renal dialysis
CPT/HCPCS: 36415; 71045; 80053; 82550; 82962; 83880; 84484; 85025; 85610; 85730; 93005; 93971; 96374; 99285; J0360

== ENCOUNTER 2020-07-26 17:24 | Emergency (ER) | payer OTHER ==
[~2020-07-26] VITALS: Ht 165.1 cm; Wt 78.3 kg
[~2020-07-26 17:24] MED LIST changes: +ASPI-1450 PO; -ASPI-728 PO
[2020-07-26 19:13] LABS: BASOPHILS % (AUTO) 0.6 % (0.0-2.0); EOSINOPHILS % (AUTO) 1.9 % (1.0-6.0); HEMATOCRIT 40.5 % (41-53); HEMOGLOBIN 13.9 g/dL (13.5-17.5); LYMPHOCYTES # (AUTO) 1.2 K/uL (1.0-4.8); LYMPHOCYTES % (AUTO) 13.6 % (22.0-44.0); MEAN CORPUSCULAR HGB CONC 34.3 G/dL (31.0-37.0); MEAN CORPUSCULAR VOLUME 82 fL (80-100); MONOCYTES # (AUTO) 0.8 K/uL (0.1-1.0); MONOCYTES % (AUTO) 8.5 % (2.0-9.0); NEUTROPHILS # (AUTO) 6.8 K/uL (1.8-7.7); NEUTROPHILS % (AUTO) 75.4 % (40.0-70.0); PLATELET COUNT (AUTO) 289 K/uL (150-450); RED BLOOD CELL COUNT(AUTO) 4.96 MIL/uL (4.50-5.90); RED CELL DISTRIBUTION WIDTH 16.7 % (11.5-14.5)
[2020-07-26 19:25] LABS: ANION GAP 12 mmol/L (8-16); CALCIUM, TOTAL 10.2 mg/dL (8.8-10.5); CARBON DIOXIDE 29 mmol/L (22-29); CHLORIDE 91 mmol/L (98-107); CREATININE 6.27 mg/dL (0.60-1.30); GLOMERULAR FILTR. RATE CALC 9 mL/min (>60); GLUCOSE,RANDOM 157 mg/dL (70-110); POTASSIUM 4.4 mmol/L (3.5-5.1); SODIUM SERUM 132 mmol/L (136-145); UREA NITROGEN, BLOOD 22 mg/dL (7-18)
[2020-07-26 19:31] LABS: ALANINE AMINOTRANSFERASE 27 U/L (12-78); ALBUMIN 4.2 g/dL (3.4-5.0); ALKALINE PHOSPHATASE 106 U/L (46-116); ASPARTATE AMINOTRANSFERASE 41 U/L (15-37); BILIRUBIN,TOTAL 0.6 mg/dL (0.1-1.0); TOTAL PROTEIN, SERUM 9.3 g/dL (6.4-8.2)
[2020-07-26 20:15] VITALS: BP 142/82
== END 2020-07-26 20:37 | disposition home or self-care (01) ==
LOC: EMS 17:24
DX: F32.9 Major depressive disorder, single episode, unspecified (principal); I13.10 Hypertensive heart and chronic kidney disease without heart failure, with stage 1 through stage 4 chronic kidney disease, or unspecified chronic kidney disease; E78.00 Pure hypercholesterolemia, unspecified; E11.9 Type 2 diabetes mellitus without complications; F17.210 Nicotine dependence, cigarettes, uncomplicated
CPT/HCPCS: 36415; 80053; 85025; 93005; 99284; G0480

== ENCOUNTER 2020-09-01 20:59 | Inpatient (IN) | payer MEDICAID, OTHER ==
[~2020-09-01] VITALS: Ht 165.1 cm; Wt 81.7 kg
[~2020-09-01 20:59] MED LIST changes: +LORA10TA7 PO; -LOSA50TA37 PO; -QUET200T PO
[2020-09-01 22:12] LABS: BASOPHILS % (AUTO) 0.6 % (0.0-2.0); EOSINOPHILS % (AUTO) 2.7 % (1.0-6.0); HEMATOCRIT 34.9 % (41-53); HEMOGLOBIN 12.1 g/dL (13.5-17.5); LYMPHOCYTES # (AUTO) 2.1 K/uL (1.0-4.8); LYMPHOCYTES % (AUTO) 28.1 % (22.0-44.0); MEAN CORPUSCULAR HEMOGLOBIN 28.7 pg (26.0-34.0); MEAN CORPUSCULAR HGB CONC 34.5 G/dL (31.0-37.0); MEAN CORPUSCULAR VOLUME 83 fL (80-100); MONOCYTES # (AUTO) 0.8 K/uL (0.1-1.0); MONOCYTES % (AUTO) 10.4 % (2.0-9.0); NEUTROPHILS # (AUTO) 4.4 K/uL (1.8-7.7); NEUTROPHILS % (AUTO) 58.2 % (40.0-70.0); PLATELET COUNT (AUTO) 344 K/uL (150-450); RED CELL DISTRIBUTION WIDTH 16.6 % (11.5-14.5)
[2020-09-01 22:20] LABS: ANION GAP 8 mmol/L (8-16); CALCIUM, TOTAL 8.8 mg/dL (8.8-10.5); CARBON DIOXIDE 31 mmol/L (22-29); CHLORIDE 92 mmol/L (98-107); CREATININE 6.69 mg/dL (0.60-1.30); GLOMERULAR FILTR. RATE CALC 9 mL/min (>60); GLUCOSE,RANDOM 178 mg/dL (70-110); POTASSIUM 3.4 mmol/L (3.5-5.1); SODIUM SERUM 131 mmol/L (136-145); UREA NITROGEN, BLOOD 25 mg/dL (7-18)
[2020-09-01 22:26] LABS: ALANINE AMINOTRANSFERASE 21 U/L (12-78); ALBUMIN 3.7 g/dL (3.4-5.0); ALKALINE PHOSPHATASE 120 U/L (46-116); ASPARTATE AMINOTRANSFERASE 19 U/L (15-37); BILIRUBIN,TOTAL 0.4 mg/dL (0.1-1.0); TOTAL PROTEIN, SERUM 7.3 g/dL (6.4-8.2)
[2020-09-01] MEDS ORDERED: ZOLPIDEM TARTRATE 10 MG TABLET PO PRN (23:45)
[2020-09-01] MEDS ORDERED: HALOPERIDOL 5 MG TABLET PO PRN (23:45)
[2020-09-02 00:03] LABS: COVID AG,FIA SOURCE NASOPHARYNGEAL
[2020-09-02 01:12] LABS: CHOL/HDL RATIO 3.7 (4.2-7.3); CHOLESTEROL 134 mg/dL (131-200); HDL CHOLESTEROL 36 mg/dL (40-60); LDL CHOL (CALC.) 41 mg/dL (0-130); TRIGLYCERIDES 286 mg/dL (15-150)
[2020-09-02] MEDS ORDERED: POTASSIUM CHLORIDE 20 MEQ ER TABLET PO ONE (01:30)
[2020-09-02 03:30] VITALS: BP 169/86
[2020-09-02] MEDS ORDERED: PNEUMOCOCCAL VACCINE POLYVALENT 0.5 ML VIAL [PPSV23] IM. ONE (05:30)
[2020-09-02] MEDS ORDERED: ACETAMINOPHEN 325 MG TABLET PO PRN (09:45)
[2020-09-02] MEDS ORDERED: CloNIDine HCL 0.1 MG TABLET PO PRN (09:45)
[2020-09-02] MEDS ORDERED: BENZOCAINE/MENTHOL LOZENGE PO PRN (09:45)
[2020-09-02] MEDS ORDERED: PETROLATUM,WHITE 28 GM JELLY TP PRN (09:45)
[2020-09-02] MEDS ORDERED: MAG HYDROX/AL HYDROX/SIMETH ES 30 ML SUSPENSION UDCUP PO PRN (09:45)
[2020-09-02] MEDS ORDERED: ALBUTEROL SULFATE HFA 90 MCG/PUFF 8 GM INHALER IH PRN (09:45)
[2020-09-02] MEDS ORDERED: ONDANSETRON HCL 4 MG TABLET PO PRN (09:45)
[2020-09-02] MEDS ORDERED: OMEPRAZOLE 20 MG CAPSULE PO PRN (09:45)
[2020-09-02] MEDS ORDERED: MAGNESIUM HYDROXIDE SUSPENSION 30 ML UDCUP PO PRN (09:45)
[2020-09-02] MEDS ORDERED: BACITRACIN 28 GM OINTMENT TP PRN (09:45)
[2020-09-02] MEDS ORDERED: DOCUSATE SODIUM 100 MG CAPSULE PO PRN (09:45)
[2020-09-02] MEDS: LORATADINE 10 MG TABLET PO SCH (10:50)
[2020-09-02] MEDS: LEVOTHYROXINE SODIUM 88 MCG TABLET PO SCH (10:50)
[2020-09-02] MEDS: OMEGA-3/DHA/EPA/FISH OIL 1,000 MG CAPSULE PO SCH (10:51)
[2020-09-02] MEDS: CETIRIZINE HCL 10 MG TABLET PO SCH (13:20)
[2020-09-02] MEDS: VITAMIN B COMP/VIT C/FOLIC ACID CAPSULE PO SCH (13:20)
[2020-09-02] MEDS: CALCIUM ACETATE 667 MG CAPSULE PO SCH ×2 (13:20→16:32)
[2020-09-02] MEDS: LURASIDONE HCL 40 MG TABLET PO SCH (16:33)
[2020-09-02 16:34] VITALS: BP 123/72
[2020-09-02] MEDS ORDERED: QUEtiapine FUMARATE 25 MG TABLET PO SCH (21:00)
[2020-09-03] MEDS: CALCIUM ACETATE 667 MG CAPSULE PO SCH ×3 (06:36→17:30)
[2020-09-03] MEDS: LEVOTHYROXINE SODIUM 88 MCG TABLET PO SCH (06:37)
[2020-09-03 08:54] VITALS: BP 149/69
[2020-09-03] MEDS ORDERED: CITALOPRAM HYDROBROMIDE 20 MG TABLET PO SCH (09:00)
[2020-09-03] MEDS: FLUoxetine HCL 20 MG CAPSULE PO SCH (10:32)
[2020-09-03] MEDS: CETIRIZINE HCL 10 MG TABLET PO SCH (10:32)
[2020-09-03] MEDS: OMEGA-3/DHA/EPA/FISH OIL 1,000 MG CAPSULE PO SCH (10:32)
[2020-09-03] MEDS: VITAMIN B COMP/VIT C/FOLIC ACID CAPSULE PO SCH (10:33)
[2020-09-03] MEDS: LORATADINE 10 MG TABLET PO SCH (10:33)
[2020-09-03] MEDS: ASPIRIN 81 MG CHEWABLE TABLET PO SCH (10:34)
[2020-09-03] MEDS: ATORVASTATIN CALCIUM 10 MG TABLET PO SCH (10:34)
[2020-09-03] MEDS: IBUPROFEN 600 MG TABLET PO PRN (17:18)
[2020-09-03] MEDS: LURASIDONE HCL 40 MG TABLET PO SCH (17:30)
[2020-09-03 20:02] VITALS: BP 146/82
[2020-09-04] MEDS: IBUPROFEN 600 MG TABLET PO PRN ×2 (00:44→14:34)
[2020-09-04 00:45] VITALS: BP 152/74
[2020-09-04] MEDS: LEVOTHYROXINE SODIUM 88 MCG TABLET PO SCH (06:44)
[2020-09-04] MEDS: CALCIUM ACETATE 667 MG CAPSULE PO SCH ×3 (06:44→17:11)
[2020-09-04 07:19] LABS: CALCIUM, TOTAL 8.6 mg/dL (8.8-10.5); CREATININE 8.41 mg/dL (0.60-1.30)
[2020-09-04 08:44] VITALS: BP 145/82
[2020-09-04] MEDS: ASPIRIN 81 MG CHEWABLE TABLET PO SCH (09:02)
[2020-09-04] MEDS: ATORVASTATIN CALCIUM 10 MG TABLET PO SCH (09:02)
[2020-09-04] MEDS: CETIRIZINE HCL 10 MG TABLET PO SCH (09:02)
[2020-09-04] MEDS: LORATADINE 10 MG TABLET PO SCH (09:02)
[2020-09-04] MEDS: OMEGA-3/DHA/EPA/FISH OIL 1,000 MG CAPSULE PO SCH (09:02)
[2020-09-04] MEDS: VITAMIN B COMP/VIT C/FOLIC ACID CAPSULE PO SCH (09:02)
[2020-09-04] MEDS: FLUoxetine HCL 20 MG CAPSULE PO SCH (09:02)
[2020-09-04 14:35] LABS: GLUCOMETER DEV NAME(LOC) 3E.I 2; GLUCOSE,POINT OF CARE 112 MG/DL (70-110)
[2020-09-04 16:22] VITALS: BP 107/73
[2020-09-04] MEDS: LURASIDONE HCL 40 MG TABLET PO SCH (17:11)
[2020-09-05 00:40] VITALS: BP 170/86
[2020-09-05] MEDS: LEVOTHYROXINE SODIUM 88 MCG TABLET PO SCH (06:30)
[2020-09-05] MEDS: CALCIUM ACETATE 667 MG CAPSULE PO SCH ×3 (06:32→16:51)
[2020-09-05] MEDS: FLUoxetine HCL 20 MG CAPSULE PO SCH (08:33)
[2020-09-05 08:34] VITALS: BP 184/100
[2020-09-05] MEDS: CETIRIZINE HCL 10 MG TABLET PO SCH (08:34)
[2020-09-05] MEDS: ASPIRIN 81 MG CHEWABLE TABLET PO SCH (08:34)
[2020-09-05] MEDS: OMEGA-3/DHA/EPA/FISH OIL 1,000 MG CAPSULE PO SCH (08:34)
[2020-09-05] MEDS: ATORVASTATIN CALCIUM 10 MG TABLET PO SCH (08:34)
[2020-09-05] MEDS: LORATADINE 10 MG TABLET PO SCH (08:34)
[2020-09-05] MEDS: VITAMIN B COMP/VIT C/FOLIC ACID CAPSULE PO SCH (08:34)
[2020-09-05] MEDS ORDERED: PARICALCITOL 1 MCG CAPSULE PO PRN (09:15)
[2020-09-05 09:47] VITALS: BP 154/72
[2020-09-05] MEDS: LOSARTAN POTASSIUM 50 MG TABLET PO SCH (10:30)
[2020-09-05] MEDS ORDERED: DEXTROSE 50%-WATER 25 GM/50 ML SYRINGE IVP PRN (10:30)
[2020-09-05 11:13] LABS: GLUCOMETER DEV NAME(LOC) 3E.I 2; GLUCOSE,POINT OF CARE 109 MG/DL (70-110)
[2020-09-05 16:17] VITALS: BP 163/90
[2020-09-05 16:50] VITALS: BP 152/80
[2020-09-05] MEDS: LURASIDONE HCL 40 MG TABLET PO SCH (16:51)
[2020-09-05] MEDS: IBUPROFEN 600 MG TABLET PO PRN (16:53)
[2020-09-05 17:06] LABS: GLUCOMETER DEV NAME(LOC) 3E.I 2; GLUCOSE,POINT OF CARE 96 MG/DL (70-110)
[2020-09-05 17:53] VITALS: BP 145/70
[2020-09-05] MEDS: LORazepam 2 MG TABLET PO PRN (19:19)
[2020-09-05 21:43] LABS: GLUCOMETER DEV NAME(LOC) 3E.I 2; GLUCOSE,POINT OF CARE 88 MG/DL (70-110)
[2020-09-06 05:33] LABS: GLUCOMETER DEV NAME(LOC) 3E.I 2; GLUCOSE,POINT OF CARE 93 MG/DL (70-110)
[2020-09-06] MEDS: CALCIUM ACETATE 667 MG CAPSULE PO SCH ×3 (06:36→16:48)
[2020-09-06] MEDS: LEVOTHYROXINE SODIUM 88 MCG TABLET PO SCH (06:36)
[2020-09-06 08:22] VITALS: BP 156/89
[2020-09-06] MEDS: LORATADINE 10 MG TABLET PO SCH (13:00)
[2020-09-06] MEDS: ASPIRIN 81 MG CHEWABLE TABLET PO SCH (13:00)
[2020-09-06] MEDS: ATORVASTATIN CALCIUM 10 MG TABLET PO SCH (13:00)
[2020-09-06] MEDS: FLUoxetine HCL 20 MG CAPSULE PO SCH (13:00)
[2020-09-06] MEDS: LOSARTAN POTASSIUM 50 MG TABLET PO SCH (13:00)
[2020-09-06] MEDS: CETIRIZINE HCL 10 MG TABLET PO SCH (13:00)
[2020-09-06] MEDS: METOPROLOL TARTRATE 50 MG TABLET PO SCH (13:00)
[2020-09-06] MEDS: OMEGA-3/DHA/EPA/FISH OIL 1,000 MG CAPSULE PO SCH (13:00)
[2020-09-06] MEDS: VITAMIN B COMP/VIT C/FOLIC ACID CAPSULE PO SCH (13:00)
[2020-09-06] MEDS: -POST HEMODIALYSIS NOTE- MISC SCH (14:04)
[2020-09-06 14:15] LABS: GLUCOMETER DEV NAME(LOC) 3E.I 2; GLUCOSE,POINT OF CARE 105 MG/DL (70-110)
[2020-09-06] MEDS: LURASIDONE HCL 40 MG TABLET PO SCH (16:48)
[2020-09-06 17:04] LABS: GLUCOMETER DEV NAME(LOC) 3E.I 2; GLUCOSE,POINT OF CARE 119 MG/DL (70-110)
[2020-09-06 17:41] VITALS: BP 173/88
[2020-09-06 21:54] LABS: GLUCOMETER DEV NAME(LOC) 3E.I 2; GLUCOSE,POINT OF CARE 101 MG/DL (70-110)
[2020-09-07 03:02] VITALS: BP 175/85
[2020-09-07] MEDS: IBUPROFEN 600 MG TABLET PO PRN (03:03)
[2020-09-07 05:23] LABS: GLUCOMETER DEV NAME(LOC) 3E.I 2; GLUCOSE,POINT OF CARE 127 MG/DL (70-110)
[2020-09-07] MEDS: LEVOTHYROXINE SODIUM 88 MCG TABLET PO SCH (06:55)
[2020-09-07] MEDS: CALCIUM ACETATE 667 MG CAPSULE PO SCH ×3 (06:55→16:58)
[2020-09-07 07:23] LABS: % IRON SATURATION 27.1 % (30-44)
[2020-09-07 07:25] LABS: HEMOGLOBIN A1C 6.4 % (3.8-5.6)
[2020-09-07 08:05] VITALS: BP 181/90
[2020-09-07] MEDS: -POST HEMODIALYSIS NOTE- MISC SCH (09:00)
[2020-09-07] MEDS: VITAMIN B COMP/VIT C/FOLIC ACID CAPSULE PO SCH (10:34)
[2020-09-07] MEDS: CETIRIZINE HCL 10 MG TABLET PO SCH (10:35)
[2020-09-07] MEDS: LOSARTAN POTASSIUM 50 MG TABLET PO SCH (10:35)
[2020-09-07] MEDS: FLUoxetine HCL 20 MG CAPSULE PO SCH (10:37)
[2020-09-07] MEDS: ASPIRIN 81 MG CHEWABLE TABLET PO SCH (10:37)
[2020-09-07] MEDS: ATORVASTATIN CALCIUM 10 MG TABLET PO SCH (10:37)
[2020-09-07] MEDS: OMEGA-3/DHA/EPA/FISH OIL 1,000 MG CAPSULE PO SCH (10:37)
[2020-09-07] MEDS: LORATADINE 10 MG TABLET PO SCH (10:37)
[2020-09-07] MEDS: METOPROLOL TARTRATE 50 MG TABLET PO SCH (10:37)
[2020-09-07 11:37] VITALS: BP 181/87
[2020-09-07] MEDS: LORazepam 2 MG TABLET PO PRN ×2 (12:06→23:59)
[2020-09-07] MEDS: INSULIN LISPRO 100 UNITS/ML SQ PRN (13:41)
[2020-09-07 13:50] LABS: GLUCOMETER DEV NAME(LOC) 3E.I 2; GLUCOSE,POINT OF CARE 150 MG/DL (70-110)
[2020-09-07 16:26] VITALS: BP 176/84
[2020-09-07] MEDS: LURASIDONE HCL 40 MG TABLET PO SCH (16:58)
[2020-09-07 17:14] LABS: GLUCOMETER DEV NAME(LOC) 3E.I 2; GLUCOSE,POINT OF CARE 104 MG/DL (70-110)
[2020-09-07 21:17] LABS: GLUCOMETER DEV NAME(LOC) 3E.I 2; GLUCOSE,POINT OF CARE 107 MG/DL (70-110)
[2020-09-07 21:38] LABS: COVID AG,FIA SOURCE NASOPHARYNGEAL
[2020-09-08 01:00] VITALS: BP 165/92
[2020-09-08 05:37] LABS: GLUCOMETER DEV NAME(LOC) 3E.I 2; GLUCOSE,POINT OF CARE 91 MG/DL (70-110)
[2020-09-08] MEDS: LEVOTHYROXINE SODIUM 88 MCG TABLET PO SCH (06:53)
[2020-09-08] MEDS: CALCIUM ACETATE 667 MG CAPSULE PO SCH ×3 (06:53→17:30)
[2020-09-08] MEDS: INSULIN LISPRO 100 UNITS/ML SQ PRN ×2 (07:07→21:48)
[2020-09-08] MEDS: OMEGA-3/DHA/EPA/FISH OIL 1,000 MG CAPSULE PO SCH (08:43)
[2020-09-08] MEDS: CETIRIZINE HCL 10 MG TABLET PO SCH (08:43)
[2020-09-08] MEDS: LOSARTAN POTASSIUM 50 MG TABLET PO SCH (08:43)
[2020-09-08] MEDS: VITAMIN B COMP/VIT C/FOLIC ACID CAPSULE PO SCH (08:43)
[2020-09-08] MEDS: ASPIRIN 81 MG CHEWABLE TABLET PO SCH (08:43)
[2020-09-08] MEDS: FLUoxetine HCL 20 MG CAPSULE PO SCH (08:44)
[2020-09-08] MEDS: METOPROLOL TARTRATE 50 MG TABLET PO SCH (08:44)
[2020-09-08] MEDS: LORATADINE 10 MG TABLET PO SCH (08:44)
[2020-09-08] MEDS: ATORVASTATIN CALCIUM 10 MG TABLET PO SCH (08:44)
[2020-09-08] MEDS: LOPERAMIDE HCL 2 MG CAPSULE PO PRN ×2 (08:48→11:02)
[2020-09-08 08:50] VITALS: BP_SYST 161; BP_DIAS 107; BP_DIAS 87
[2020-09-08] MEDS: MULTIVITAMINS WITH IRON TABLET PO SCH (08:53)
[2020-09-08 11:24] LABS: GLUCOMETER DEV NAME(LOC) 3E.I 2; GLUCOSE,POINT OF CARE 129 MG/DL (70-110)
[2020-09-08 16:00] VITALS: BP 141/78
[2020-09-08] MEDS: LURASIDONE HCL 40 MG TABLET PO SCH (17:30)
[2020-09-08 19:44] VITALS: BP 165/82
[2020-09-08] MEDS: IBUPROFEN 600 MG TABLET PO PRN (19:45)
[2020-09-08 21:42] LABS: GLUCOMETER DEV NAME(LOC) 3E.I 2; GLUCOSE,POINT OF CARE 185 MG/DL (70-110)
[2020-09-09 05:31] VITALS: BP 150/76
[2020-09-09] MEDS: IBUPROFEN 600 MG TABLET PO PRN (05:31)
[2020-09-09 05:43] LABS: GLUCOMETER DEV NAME(LOC) 3E.I 2; GLUCOSE,POINT OF CARE 87 MG/DL (70-110)
[2020-09-09] MEDS: CALCIUM ACETATE 667 MG CAPSULE PO SCH ×2 (06:38→11:51)
[2020-09-09] MEDS: LEVOTHYROXINE SODIUM 88 MCG TABLET PO SCH (06:38)
[2020-09-09] MEDS: ATORVASTATIN CALCIUM 10 MG TABLET PO SCH (07:59)
[2020-09-09] MEDS: LORATADINE 10 MG TABLET PO SCH (07:59)
[2020-09-09] MEDS: ASPIRIN 81 MG CHEWABLE TABLET PO SCH (07:59)
[2020-09-09] MEDS: FLUoxetine HCL 20 MG CAPSULE PO SCH (07:59)
[2020-09-09] MEDS: OMEGA-3/DHA/EPA/FISH OIL 1,000 MG CAPSULE PO SCH (07:59)
[2020-09-09] MEDS: VITAMIN B COMP/VIT C/FOLIC ACID CAPSULE PO SCH (07:59)
[2020-09-09] MEDS: METOPROLOL TARTRATE 50 MG TABLET PO SCH (07:59)
[2020-09-09] MEDS: MULTIVITAMINS WITH IRON TABLET PO SCH (07:59)
[2020-09-09] MEDS: CETIRIZINE HCL 10 MG TABLET PO SCH (07:59)
[2020-09-09] MEDS: LOSARTAN POTASSIUM 50 MG TABLET PO SCH (08:00)
[2020-09-09 08:19] VITALS: BP 155/76
[2020-09-09] MEDS: -POST HEMODIALYSIS NOTE- MISC SCH (09:00)
[2020-09-09 11:16] LABS: GLUCOMETER DEV NAME(LOC) 3E.I 2; GLUCOSE,POINT OF CARE 98 MG/DL (70-110)
[2020-09-09] MEDS ORDERED: FLUO20CA36 PO (13:56)
[2020-09-09] MEDS ORDERED: METO50 PO (14:04)
[2020-09-09] MEDS ORDERED: MVITFE PO (14:04)
[2020-09-09] MEDS ORDERED: OMEG-12 PO (14:04)
[2020-09-09] MEDS ORDERED: LURA40TA2 PO (14:04)
[2020-09-09] MEDS ORDERED: LOSA50TA37 PO (14:04)
[2020-09-09] MEDS ORDERED: B CO1CAP6 PO (14:04)
[2020-09-09] MEDS ORDERED: PARI1CAP3 MISC (14:08)
== END 2020-09-09 16:00 | disposition home or self-care (01) | DRG 750 ==
LOC: EMS 20:59 → 3EI 23:30
PROVIDERS: ADMIT Psychiatry & Neurology Psychiatry; ATTEND Psychiatry & Neurology Psychiatry
PROC: 5A1D70Z Performance of Urinary Filtration, Intermittent, Less than 6 Hours Per Day (ICD-10-PCS; principal; 2020-09-06)
DX: F25.1 Schizoaffective disorder, depressive type (principal); E11.22 Type 2 diabetes mellitus with diabetic chronic kidney disease; E11.51 Type 2 diabetes mellitus with diabetic peripheral angiopathy without gangrene; E46 Unspecified protein-calorie malnutrition; R64 Cachexia; N18.6 End stage renal disease; D63.1 Anemia in chronic kidney disease; E03.9 Hypothyroidism, unspecified; E78.00 Pure hypercholesterolemia, unspecified; R62.7 Adult failure to thrive; E78.5 Hyperlipidemia, unspecified; E83.39 Other disorders of phosphorus metabolism; E83.51 Hypocalcemia; E87.1 Hypo-osmolality and hyponatremia; I13.11 Hypertensive heart and chronic kidney disease without heart failure, with stage 5 chronic kidney disease, or end stage renal disease; Z20.822 Contact with and (suspected) exposure to COVID-19; I25.10 Atherosclerotic heart disease of native coronary artery without angina pectoris; K21.9 Gastro-esophageal reflux disease without esophagitis; E87.6 Hypokalemia; N25.81 Secondary hyperparathyroidism of renal origin; R45.851 Suicidal ideations; Z56.0 Unemployment, unspecified; Z87.891 Personal history of nicotine dependence; Z99.2 Dependence on renal dialysis; Z68.30 Body mass index [BMI] 30.0-30.9, adult
CPT/HCPCS: 80048; 80053; 80061; 82962; 83036; 83540; 83550; 84484; 85025; 87340; 87426; 90935; 93005; 99285; G0480

== ENCOUNTER 2022-02-13 16:54 | Inpatient (IN) | payer MEDICAID, OTHER ==
[~2022-02-13] VITALS: Ht 165.1 cm; Wt 80.6 kg
[~2022-02-13 16:54] MED LIST changes: +ATOR10TA PO; -ATOR10TA84 PO; +B CO1CAP6 PO; -CETI-450 PO; +CLIN300C58 PO; +FLUO20CA36 PO; -FOLI0.8T43 PO; +HYDR50TA36 PO; +LOSA-382 PO; +LURA40TA2 PO; +METO50 PO; +NIFE-129 PO; -PANT-31 PO; -QUET25TA PO; +SEVE0.8P6 PO; +TRIL8 PO
[2022-02-13 17:48] LABS: BASOPHILS % (AUTO) 0.9 % (0.0-2.0); EOSINOPHILS % (AUTO) 1.9 % (1.0-6.0); HEMATOCRIT 36.2 % (41-53); HEMOGLOBIN 12.3 g/dL (13.5-17.5); LYMPHOCYTES # (AUTO) 1.8 K/uL (1.0-4.8); LYMPHOCYTES % (AUTO) 21.2 % (22.0-44.0); MEAN CORPUSCULAR HEMOGLOBIN 29.9 pg (26.0-34.0); MEAN CORPUSCULAR HGB CONC 33.9 G/dL (31.0-37.0); MEAN CORPUSCULAR VOLUME 88 fL (80-100); MONOCYTES # (AUTO) 0.9 K/uL (0.1-1.0); MONOCYTES % (AUTO) 10.9 % (2.0-9.0); NEUTROPHILS # (AUTO) 5.6 K/uL (1.8-7.7); NEUTROPHILS % (AUTO) 65.1 % (40.0-70.0); PLATELET COUNT (AUTO) 369 K/uL (150-450); RED BLOOD CELL COUNT(AUTO) 4.11 MIL/uL (4.50-5.90); RED CELL DISTRIBUTION WIDTH 17.1 % (11.5-14.5)
[2022-02-13 18:02] LABS: ANION GAP 13 mmol/L (8-16); CALCIUM, TOTAL 10.1 mg/dL (8.8-10.5); CARBON DIOXIDE 30 mmol/L (22-29); CHLORIDE 91 mmol/L (98-107); CREATININE 13.64 mg/dL (0.60-1.30); GLOMERULAR FILTR. RATE CALC 4 mL/min (>60); GLUCOSE,RANDOM 160 mg/dL (70-110); POTASSIUM 5.6 mmol/L (3.5-5.1); SODIUM SERUM 134 mmol/L (136-145); UREA NITROGEN, BLOOD 51 mg/dL (7-18)
[2022-02-13 18:16] LABS: ALANINE AMINOTRANSFERASE 26 U/L (12-78); ALBUMIN 4.1 g/dL (3.4-5.0); ALKALINE PHOSPHATASE 147 U/L (46-116); ASPARTATE AMINOTRANSFERASE 30 U/L (15-37); BILIRUBIN,TOTAL 0.5 mg/dL (0.1-1.0); TOTAL PROTEIN, SERUM 8.6 g/dL (6.4-8.2)
[2022-02-13 18:21] LABS: GLUCOMETER DEV NAME(LOC) ERT.5; GLUCOSE,POINT OF CARE 145 MG/DL (70-110)
[2022-02-13 18:59] LABS: COVID AG,FIA SOURCE NASAL SWAB
[2022-02-13] MEDS ORDERED: NITROGLYCERIN 0.4 MG SUBLINGUAL TABLET #25 SL ONE (19:00)
[2022-02-13] MEDS ORDERED: ASPIRIN 81 MG CHEWABLE TABLET PO ONE (19:00)
[2022-02-13] MEDS ORDERED: NITROGLYCERIN 2% (1 GM=INCH) PACKET TP ONE (19:00)
[2022-02-13] MEDS ORDERED: HALOPERIDOL LACTATE 5 MG/ML VIAL IM ONE (19:15)
[2022-02-13] MEDS ORDERED: LORazepam 2 MG/ML VIAL IM ONE (19:15)
[2022-02-13] MEDS ORDERED: DiphenhydrAMINE HCL 50 MG/ML VIAL IM ONE (19:15)
[2022-02-13] MEDS ORDERED: ACETAMINOPHEN 325 MG TABLET PO PRN (19:30)
[2022-02-13] MEDS ORDERED: MORPHINE SULFATE 2 MG/ML SYRINGE IVP PRN (19:30)
[2022-02-13] MEDS ORDERED: BISACODYL 10 MG RECTAL RECTAL SUPPOSITORY PR PRN (19:30)
[2022-02-13] MEDS ORDERED: DEXTROSE 50%-WATER 25 GM/50 ML SYRINGE IVP PRN (19:30)
[2022-02-13] MEDS ORDERED: LORazepam 2 MG/ML VIAL IVP PRN (19:30)
[2022-02-13] MEDS ORDERED: ONDANSETRON HCL 4 MG/2 ML VIAL IVP PRN (19:30)
[2022-02-13] MEDS ORDERED: OxyCODONE HCL/ACETAMINOPHEN 5-325 MG TABLET PO PRN (19:30)
[2022-02-13] MEDS: ATORVASTATIN CALCIUM 20 MG TABLET PO SCH (19:55)
[2022-02-13 20:04] LABS: PROTHROMBIN TIME 10.6 SEC (9.4-11.6)
[2022-02-13] MEDS ORDERED: HEPARIN SODIUM,PORCINE 5,000 UNITS/ML VIAL IVP PRN ×3 (20:45→21:45)
[2022-02-13] MEDS ORDERED: HEPARIN SODIUM 25000 UNITS/D5W 250 ML IV PRN (20:45)
[2022-02-13] MEDS: DOCUSATE SODIUM 100 MG CAPSULE PO SCH (20:57)
[2022-02-13] MEDS: CARVEDILOL 12.5 MG TABLET PO SCH (21:53)
[2022-02-13] MEDS ORDERED: HEPARIN SODIUM,PORCINE 5,000 UNITS/ML VIAL IVP ONE (22:00)
[2022-02-13] MEDS: INSULIN LISPRO 100 UNITS/ML SQ PRN (23:26)
[2022-02-13 23:31] LABS: GLUCOMETER DEV NAME(LOC) ERT.5; GLUCOSE,POINT OF CARE 123 MG/DL (70-110)
[2022-02-14] VITALS (13 sets, daily range): BP systolic 128–158; BP diastolic 66–98
[2022-02-14] MEDS ORDERED: HEPARIN SODIUM,PORCINE 5,000 UNITS/ML VIAL SQ SCH
[2022-02-14 04:57] LABS: BASOPHILS % (AUTO) 1.5 % (0.0-2.0); HEMATOCRIT 30.7 % (41-53); HEMOGLOBIN 10.4 g/dL (13.5-17.5); LYMPHOCYTES # (AUTO) 2.1 K/uL (1.0-4.8); MEAN CORPUSCULAR HEMOGLOBIN 29.8 pg (26.0-34.0); MEAN CORPUSCULAR VOLUME 88 fL (80-100); MONOCYTES % (AUTO) 12.8 % (2.0-9.0); NEUTROPHILS # (AUTO) 4.2 K/uL (1.8-7.7); NEUTROPHILS % (AUTO) 53.7 % (40.0-70.0); PLATELET COUNT (AUTO) 299 K/uL (150-450); RED BLOOD CELL COUNT(AUTO) 3.51 MIL/uL (4.50-5.90); RED CELL DISTRIBUTION WIDTH 16.9 % (11.5-14.5)
[2022-02-14 05:15] LABS: CALCIUM, TOTAL 9.2 mg/dL (8.8-10.5); CREATININE 15.09 mg/dL (0.60-1.30)
[2022-02-14 05:17] LABS: POTASSIUM 6.2 mmol/L (3.5-5.1)
[2022-02-14] MEDS ORDERED: SODIUM ZIRCONIUM CYCLOSILICATE 5 GM POWDER PACKET PO ONE (05:30)
[2022-02-14] MEDS: FAMOTIDINE 20 MG TABLET PO SCH (08:23)
[2022-02-14] MEDS: CARVEDILOL 12.5 MG TABLET PO SCH ×2 (08:23→21:15)
[2022-02-14] MEDS: ATORVASTATIN CALCIUM 20 MG TABLET PO SCH (08:23)
[2022-02-14] MEDS: DOCUSATE SODIUM 100 MG CAPSULE PO SCH ×3 (08:23→21:15)
[2022-02-14] MEDS: ASPIRIN 81 MG DR TABLET PO SCH (08:23)
[2022-02-14] MEDS: INSULIN LISPRO 100 UNITS/ML SQ PRN ×2 (12:31→17:50)
[2022-02-14] MEDS ORDERED: SODIUM CHLORIDE 0.9% 2,000 ML ONE (14:16)
[2022-02-14 20:11] LABS: GLUCOMETER DEV NAME(LOC) 5N.1C; GLUCOSE,POINT OF CARE 147 MG/DL (70-110)
[2022-02-14 20:11] LABS: GLUCOMETER DEV NAME(LOC) 5N.1C; GLUCOSE,POINT OF CARE 142 MG/DL (70-110)
[2022-02-14 23:46] LABS: GLUCOMETER DEV NAME(LOC) 5S.1B; GLUCOSE,POINT OF CARE 107 MG/DL (70-110)
[2022-02-15] VITALS (17 sets, daily range): BP systolic 97–203; BP diastolic 61–98
[2022-02-15] MEDS ORDERED: SODIUM BICARBONATE 50 MEQ/50 ML VIAL ONE (07:01)
[2022-02-15] MEDS ORDERED: IOHEXOL 300 MG/ML 100 ML VIAL ONE (07:01)
[2022-02-15] MEDS ORDERED: VERAPAMIL HCL 2.5 MG/ML 2 ML VIAL ONE ×2 (07:01→08:28)
[2022-02-15] MEDS ORDERED: LIDOCAINE/PF 1% 30 ML VIAL ONE (07:01)
[2022-02-15] MEDS ORDERED: HEPARIN SODIUM 1000 UNITS/NS 1,000 ML ONE (07:01)
[2022-02-15] MEDS ORDERED: NITROGLYCERIN 50 MG/D5% WATER 250 ML ONE (07:02)
[2022-02-15 07:40] LABS: CHOL/HDL RATIO 2.7 (4.2-7.3); CREATININE 10.62 mg/dL (0.60-1.30)
[2022-02-15] MEDS ORDERED: MIDAZOLAM HCL 2 MG/2 ML VIAL ONE (07:48)
[2022-02-15] MEDS ORDERED: FentaNYL CITRATE PF 100 MCG/2 ML VIAL ONE (07:48)
[2022-02-15] MEDS ORDERED: MIDAZOLAM HCL 2 MG/2 ML VIAL IVP ONE (08:00)
[2022-02-15] MEDS ORDERED: HEPARIN SODIUM 1000 UNITS/NS 1,000 ML IARTER ONE (08:15)
[2022-02-15] MEDS ORDERED: FentaNYL CITRATE PF 100 MCG/2 ML VIAL IVP ONE (08:15)
[2022-02-15] MEDS ORDERED: NITROGLYCERIN/D5W 50 MG/250 ML IV BOTTLE IARTER ONE (08:15)
[2022-02-15] MEDS ORDERED: VERAPAMIL HCL 2.5 MG/ML 2 ML VIAL IARTER ONE (08:15)
[2022-02-15] MEDS ORDERED: HEPARIN SODIUM,PORCINE 1,000 UNITS/ML 10 ML VIAL IARTER ONE (08:15)
[2022-02-15] MEDS ORDERED: IOHEXOL 300 MG/ML 100 ML VIAL ICOR ONE (08:15)
[2022-02-15] MEDS ORDERED: LIDOCAINE 1% 30 ML/SOD BICARB 8.4% 4 ML SQ ONE (08:15)
[2022-02-15] MEDS ORDERED: SODIUM CHLORIDE 0.9% 500 ML IV ONE (08:15)
[2022-02-15] MEDS: ATORVASTATIN CALCIUM 20 MG TABLET PO SCH (09:15)
[2022-02-15] MEDS: CARVEDILOL 12.5 MG TABLET PO SCH (09:15)
[2022-02-15] MEDS: FAMOTIDINE 20 MG TABLET PO SCH (09:15)
[2022-02-15] MEDS: ASPIRIN 81 MG DR TABLET PO SCH (09:15)
[2022-02-15] MEDS: DOCUSATE SODIUM 100 MG CAPSULE PO SCH (09:15)
[2022-02-15 09:21] LABS: GLUCOMETER DEV NAME(LOC) 5N.1C; GLUCOSE,POINT OF CARE 108 MG/DL (70-110)
[2022-02-15] MEDS ORDERED: QUET300T2 PO (09:22)
[2022-02-15] MEDS ORDERED: QUET25TA PO (09:22)
[2022-02-15] MEDS ORDERED: FLUoxetine HCL 10 MG CAPSULE PO SCH (09:30)
[2022-02-15] MEDS ORDERED: QUEtiapine FUMARATE 25 MG TABLET PO SCH (09:30)
[2022-02-15] MEDS ORDERED: CARV12.530 PO ×2 (16:17→16:18)
[2022-02-15] MEDS ORDERED: SEVELAMER CARBONATE 800 MG TABLET PO SCH (18:00)
[2022-02-15] MEDS ORDERED: QUEtiapine FUMARATE 300 MG TABLET PO SCH (21:00)
[2022-02-16] MEDS ORDERED: CINACALCET HCL 30 MG TABLET PO SCH (08:00)
[2022-02-17] MEDS ORDERED: EPOETIN ALFA 10,000 UNITS/ML 2 ML VIAL SQ SCH (09:00)
== END 2022-02-15 16:55 | disposition home or self-care (01) | DRG 190 ==
LOC: EMS 16:58 → 5S 02-14 05:22
PROVIDERS: ADMIT Internal Medicine; ATTEND Internal Medicine
PROC: 5A1D70Z Performance of Urinary Filtration, Intermittent, Less than 6 Hours Per Day (ICD-10-PCS; 2022-02-14)
PROC: B2111ZZ Fluoroscopy of Multiple Coronary Arteries using Low Osmolar Contrast (ICD-10-PCS; principal; 2022-02-15)
PROC: 5A1D70Z Performance of Urinary Filtration, Intermittent, Less than 6 Hours Per Day (ICD-10-PCS; 2022-02-15)
PROC: 4A023N8 Measurement of Cardiac Sampling and Pressure, Bilateral, Percutaneous Approach (ICD-10-PCS; 2022-02-15)
PROC: B2111ZZ Fluoroscopy of Multiple Coronary Arteries using Low Osmolar Contrast (ICD-10-PCS; 2022-02-15)
DX: I21.4 Non-ST elevation (NSTEMI) myocardial infarction (principal); I12.0 Hypertensive chronic kidney disease with stage 5 chronic kidney disease or end stage renal disease; F25.1 Schizoaffective disorder, depressive type; D63.8 Anemia in other chronic diseases classified elsewhere; D63.1 Anemia in chronic kidney disease; R45.851 Suicidal ideations; N18.6 End stage renal disease; E87.5 Hyperkalemia; E03.9 Hypothyroidism, unspecified; E11.22 Type 2 diabetes mellitus with diabetic chronic kidney disease; Z20.822 Contact with and (suspected) exposure to COVID-19; E78.00 Pure hypercholesterolemia, unspecified; F19.10 Other psychoactive substance abuse, uncomplicated; I25.10 Atherosclerotic heart disease of native coronary artery without angina pectoris; F31.9 Bipolar disorder, unspecified; Z79.4 Long term (current) use of insulin; Z99.2 Dependence on renal dialysis; Z91.199 Patient's noncompliance with other medical treatment and regimen due to unspecified reason; Z88.0 Allergy status to penicillin; Z88.8 Allergy status to other drugs, medicaments and biological substances; Z87.891 Personal history of nicotine dependence; Z79.899 Other long term (current) drug therapy
CPT/HCPCS: 71045; 80048; 80053; 80061; 82565; 82962; 83880; 84443; 84484; 84520; 85025; 85610; 85730; 87081; 87340; 90935; 93005; 93306; G0480; J1200; J1630; J1644; J2060; J2250; J3010; J3490; J7030; Q9967; 36415-L1; 36415-TC; Z7610

== ENCOUNTER 2024-09-07 13:54 | Emergency (ER) | payer OTHER ==
[~2024-09-07] VITALS: Ht 162.6 cm; Wt 80.0 kg
[~2024-09-07 13:54] MED LIST changes: -ATOR10TA PO; +CARV12.530 PO; -CLIN300C58 PO; +FLUO-418 PO; -FLUO20CA36 PO; -HYDR50TA36 PO; -LORA10TA7 PO; -LOSA-382 PO; -LURA40TA2 PO; -METO50 PO; -NIFE-129 PO; +OMEG100014 PO; -OMEG10005 PO; -PHOSLOC PO; +QUET25TA PO; +QUET300T2 PO; -SEVE0.8P6 PO; -TRIL8 PO
[2024-09-07] MEDS: CEPHALEXIN MONOHYDRATE 500 MG CAPSULE PO ONE (19:59)
[2024-09-07] MEDS: DOXYCYCLINE HYCLATE 100 MG TABLET PO ONE (19:59)
[2024-09-07] MEDS ORDERED: DOXY-354 PO (20:04)
[2024-09-07] MEDS ORDERED: CEPH-556 PO (20:04)
[2024-09-07 20:09] VITALS: BP 135/85; PULSE 60; RESP 18; TEMP 97.905272; O2SAT 98
== END 2024-09-07 20:14 | disposition home or self-care (01) ==
LOC: EMS 13:54
DX: L02.413 Cutaneous abscess of right upper limb (principal); E11.22 Type 2 diabetes mellitus with diabetic chronic kidney disease; F25.1 Schizoaffective disorder, depressive type; E78.00 Pure hypercholesterolemia, unspecified; I12.0 Hypertensive chronic kidney disease with stage 5 chronic kidney disease or end stage renal disease; N18.6 End stage renal disease; E03.9 Hypothyroidism, unspecified; F17.210 Nicotine dependence, cigarettes, uncomplicated; F12.90 Cannabis use, unspecified, uncomplicated; F15.90 Other stimulant use, unspecified, uncomplicated; F14.90 Cocaine use, unspecified, uncomplicated; F19.90 Other psychoactive substance use, unspecified, uncomplicated; Z98.890 Other specified postprocedural states; Z99.2 Dependence on renal dialysis; Z79.899 Other long term (current) drug therapy; Z88.0 Allergy status to penicillin; Z79.82 Long term (current) use of aspirin; Z72.89 Other problems related to lifestyle
CPT/HCPCS: 10060; 82962; 99283